=== PATIENT | female | born 1995 | race Caucasian/White ===

== ENCOUNTER 2016-11-30 14:17 | Emergency (ER) | payer OTHER ==
[2016-11-30] MEDS ORDERED: ONDANSETRON PF 4 MG/2 ML VIAL. IV ONE ×2 (14:45→15:15)
[2016-11-30 15:04] LABS: BASO # 0.1 x10^3/uL (0.0-0.2); BASO % 1 % (0-3); EOS # 0.3 x10^3/uL (0.0-0.7); EOS % 4 % (0-3); HEMATOCRIT 36.5 % (36.0-47.0); HEMOGLOBIN 12.3 g/dL (12.0-15.5); LYMPH # 2.9 x10^3/uL (1.0-4.8); LYMPH % 31 % (24-48); MEAN CORPUSCULAR HEMOGLOBIN 29 pg (25-35); MEAN CORPUSCULAR HGB CONC 34 g/dL (31-37); MEAN CORPUSCULAR VOLUME 86 fL (79-100); MONO # 0.5 x10^3/uL (0.0-1.1); MONO % 5 % (0-9); NEUT # 5.5 x10^3uL (1.8-7.7); NEUT % 59 % (31-73); PLATELET COUNT 292 x10^3/uL (140-400); RED BLOOD COUNT 4.23 x10^6/uL (3.50-5.40); RED CELL DISTRIBUTION WIDTH 14.7 % (11.5-14.5); WHITE BLOOD COUNT 9.3 x10^3/uL (4.0-11.0)
[2016-11-30 15:12] LABS: BILIRUBIN,URINE NEG (NEG); CLARITY,URINE CLOUDY; COLOR,URINE YELLOW; GLUCOSE,URINE NEG (NEG); NITRITE,URINE NEG (NEG); UROBILINOGEN,URINE 0.2 mg/dL (0.2 mg/dL)
[2016-11-30 15:13] LABS: BACTERIA,URINE FEW /HPF (0-FEW); SQUAMOUS EPITHELIAL CELL,UR MANY /LPF
[2016-11-30 15:15] LABS: ALBUMIN 3.9 g/dL (3.4-5.0); ALBUMIN/GLOBULIN RATIO 0.9 (1.0-1.7); CALCIUM 8.9 mg/dL (8.5-10.1); CREATININE 0.7 mg/dL (0.6-1.0); GFR 103.7; POTASSIUM 3.8 mmol/L (3.5-5.1); TOTAL BILIRUBIN 0.8 mg/dL (0.2-1.0); TOTAL PROTEIN 8.2 g/dL (6.4-8.2)
[2016-11-30] MEDS ORDERED: LIDO:MAALOX 1:1 20 ML SINGLE DOSE PO ONE (15:15)
--- NOTE | 2016-11-30 15:15 | ED.ADGEN ---
Past History Past Medical History: No Pertinent History Past Surgical History: Alcohol Use: Occasionally Drug Use: None Adult General HPI HPI Patient is a 21-year-old woman, history of , who presents to the emergency department with a complaint of nausea, vomiting, diarrhea and abdominal pain that began yesterday. Patient states that she is experiencing sharp shooting abdominal pains that began in the upper abdomen radiating to the lower abdomen, associated with episodes of diarrhea, nausea, and vomiting, food and fluid. Denies any blood in stool or emesis. Denies any sick contacts or bad food exposure, any fevers or chills, any body aches, any focal weakness, numbness, tingling, chest pain, flank pain, urinary complaints. Patient was seen by her primary care provider yesterday, she states that at the time of her evaluation, her physician had a student in the room, she states that they discussed the possibility that she had inflammation of her "maybe my liver or my pancreas", patient states that she is continued to have sharp pain, although her diarrhea nausea and vomiting are better today, and she is concerned about the possibility of inflammation or other abnormalities with her liver. She continues to have pain she says is about a 5 out of 10, has not taken anything for pain prior to coming to the ED. She states that she was prescribed "with a told it was an antibiotic, for diarrhea". She does not recall the name of the medication. Review of Systems Review of Systems Constitutional: Denies fever or chills [] Eyes: Denies change in visual acuity, redness, or eye pain [] HENT: Denies nasal congestion or sore throat [] Respiratory: Denies cough or shortness of breath [] Cardiovascular: No additional information not addressed in HPI [] GI: Sharp cramping abdominal pain begins in the upper abdomen and radiates down to the lower abdomen, associated with nausea, vomiting, and diarrhea. No blood in emesis or stool. : Denies dysuria or hematuria [] Musculoskeletal: Denies back pain or joint pain [] Integument: Denies rash or skin lesions [] Neurologic: Denies headache, focal weakness or sensory changes [] Endocrine: Denies polyuria or polydipsia [] Current Medications Current Medications Current Medications Medications (Trade) Dose Ordered Sig/Jeaneth Start Time Stop Time Status Last Admin Dose Admin Multi-Ingredient Mouthwash/Gargle (Gi Cocktail) 20 ml 1X ONCE 11/30/16 15:15 11/30/16 15:16 DC 11/30/16 15:25 20 ML Ondansetron HCl (Zofran Odt) 4 mg 1X ONCE 11/30/16 15:30 11/30/16 15:31 DC 11/30/16 15:25 4 MG Ondansetron HCl (Zofran) 4 mg 1X ONCE 11/30/16 15:15 11/30/16 15:28 DC Allergies Allergies Allergies Coded Allergies Type Severity Reaction Last Updated Verified latex Allergy Unknown 11/30/16 Yes Physical Exam Physical Exam Constitutional: Well developed, well nourished, no acute distress, non-toxic appearance. [] HENT: Normocephalic, atraumatic, bilateral external ears normal, oropharynx moist, no oral exudates, nose normal. [] Eyes: PERRLA, EOMI, conjunctiva normal, no discharge. [] Neck: Normal range of motion, no tenderness, supple, no stridor. [] Cardiovascular:Heart rate regular rhythm, no murmur, S1, S2, rubs or gallops. [] Lungs & Thorax: Bilateral breath sounds clear to auscultation, no wheezing, rhonchi, rales. No chest wall crepitus or tenderness. [] Abdomen: Bowel sounds normal, soft, mild tenderness palpation in the epigastric region, periumbilical region, no tenderness to palpation of the right upper quadrant, in the lower abdomen, no rebound, rigidity, no guarding, no masses, no pulsatile masses. [] Skin: Warm, dry, no erythema, no rash. [] Back: No tenderness, no CVA tenderness. [] Extremities: No tenderness, no cyanosis, no clubbing, ROM intact, no edema. Negative Homans sign. [] Neurologic: Alert and oriented X 3, normal motor function, normal sensory function, no focal deficits noted. [] Psychologic: Affect normal, judgement normal, mood normal. [] Current Patient Data Vital Signs Vital Signs Date Time Temp Pulse Resp B/P (MAP) Pulse Ox O2 Delivery O2 Flow Rate FiO2 11/30/16 14:35 98.2 96 16 97 Room Air Lab Results Laboratory Tests Test 11/30/16 14:30 11/30/16 14:49 11/30/16 14:50 Urine Collection Type Unknown Urine Color Yellow Urine Clarity Cloudy Urine pH 5.0 Urine Specific [place] 1.025 Urine Protein Neg (NEG-TRACE) Urine Glucose (UA) Neg mg/dL (NEG) Urine Ketones (Stick) Neg mg/dL (NEG) Urine Blood Large (NEG) Urine Nitrite Neg (NEG) Urine Bilirubin Neg (NEG) Urine Urobilinogen Dipstick 0.2 mg/dL (0.2 mg/dL) Urine Leukocyte Esterase Neg (NEG) Urine RBC 3-5 /HPF (0-2) Urine WBC 1-4 /HPF (0-4) Urine Squamous Epithelial Cells Many /LPF Urine Bacteria Few /HPF (0-FEW) POC Urine HCG, Qualitative hcg negative (Negative) White Blood Count 9.3 x10^3/uL (4.0-11.0) Red Blood Count 4.23 x10^6/uL (3.50-5.40) Hemoglobin 12.3 g/dL (12.0-15.5) Hematocrit 36.5 % (36.0-47.0) Mean Corpuscular Volume 86 fL (79-100) Mean Corpuscular Hemoglobin 29 pg (25-35) Mean Corpuscular Hemoglobin Concent 34 g/dL (31-37) Red Cell Distribution Width 14.7 % (11.5-14.5) H Platelet Count 292 x10^3/uL (140-400) Neutrophils (%) (Auto) 59 % (31-73) Lymphocytes (%) (Auto) 31 % (24-48) Monocytes (%) (Auto) 5 % (0-9) Eosinophils (%) (Auto) 4 % (0-3) H Basophils (%) (Auto) 1 % (0-3) Neutrophils # (Auto) 5.5 x10^3uL (1.8-7.7) Lymphocytes # (Auto) 2.9 x10^3/uL (1.0-4.8) Monocytes # (Auto) 0.5 x10^3/uL (0.0-1.1) Eosinophils # (Auto) 0.3 x10^3/uL (0.0-0.7) Basophils # (Auto) 0.1 x10^3/uL (0.0-0.2) Sodium Level 140 mmol/L (136-145) Potassium Level 3.8 mmol/L (3.5-5.1) Chloride Level 103 mmol/L (98-107) Carbon Dioxide Level 28 mmol/L (21-32) Anion Gap 9 (6-14) Blood Urea Nitrogen 19 mg/dL (7-20) Creatinine 0.7 mg/dL (0.6-1.0) Estimated GFR (Cockcroft-Gault) 103.7 BUN/Creatinine Ratio 27 (6-20) H Glucose Level 105 mg/dL (70-99) H Calcium Level 8.9 mg/dL (8.5-10.1) Total Bilirubin 0.8 mg/dL (0.2-1.0) Aspartate Amino Transferase (AST) 13 U/L (15-37) L Alanine Aminotransferase (ALT) 22 U/L (14-59) Alkaline Phosphatase 65 U/L (46-116) Total Protein 8.2 g/dL (6.4-8.2) Albumin 3.9 g/dL (3.4-5.0) Albumin/Globulin Ratio 0.9 (1.0-1.7) L Lipase 179 U/L (73-393) EKG EKG Not indicated. [] Radiology/Procedures Radiology/Procedures [][place] [address] IMAGING REPORT Signed PATIENT: NATHALIA SPENCER ACCOUNT: [id number] : 1995 LOCATION: ER AGE: 21 SEX: F EXAM STATUS: PRE ER ORD. PHYSICIAN: PASCUAL GILBERT DO REASON: abd pain/n/v PROCEDURE: ACUTE ABDOMEN SERIES Acute abdomen series with chest, 3 views, 11/30/2016: History: Abdominal pain, vomiting and diarrhea The abdominal gas pattern is unremarkable. No free air is seen in the abdomen. There is no evidence of organomegaly. Lower pelvic calcifications are compatible with phleboliths. The heart size is normal. The lungs are clear. There is no evidence of pleural fluid. IMPRESSION: No acute abdominal abnormality is detected. DICTATED AND SIGNED BY: STALIN GRANDA MD DATE: 11/30/16 5623 CC: YAMEL DE LOS SANTOS; PASCUAL GILBERT DO ~ Course & Med Decision Making Course & Med Decision Making Pertinent Labs and Imaging studies reviewed. (See chart for details) During the course or discussion, patient states that she is unclear exactly what her physician was saying, states they did not give her any indication if she actually had an enlarged liver, or other concerning findings examination, she was unclear from the conversation, if any additional follow-up was required. Discussed with patient that due to his symptoms and concerns, we will obtain laboratory studies, and obstruction series the abdomen, as patient does not have any concerning abdominal findings at this time, although she continues to have pain, and some symptoms. Discussed with patient that her symptoms may be consistent with a viral illness. Patient voiced understanding and agreement with this plan, did receive GI cocktail, oral Zofran in the ED. Patient's laboratory studies and imaging not reveal any concerning findings. I did discuss laboratory studies and imaging with patient, she is feeling better, has not had any further emesis in the ED, states she is still expressing some abdominal pain. Discussed the patient that her symptoms could be from a viral illness, recommended use of Zofran, Bentyl, fluids, we also discussed concerning symptoms that would prompt return to the ED for additional evaluation. Importance of good hand hygiene. Patient voiced understanding and agreement with plan and precautions as stated, discharged home in stable condition with prescription for Zofran and Bentyl. Final Impression Final Impression [] Problems: Dragon Disclaimer Dragon Disclaimer This electronic medical record was generated, in whole or in part, using a voice recognition dictation system. Departure: Impression: Primary Impression: Nausea & vomiting Disposition: 01 HOME, SELF-CARE Condition: IMPROVED Scripts Dicyclomine Hcl (BENTYL) 10 Mg Capsule 1 CAP PO PRN TID Y for ABD CRAMPING, #12 CAP Prov: PASCUAL GILBERT DO 11/30/16 Ondansetron Hcl (ZOFRAN) 4 Mg Tablet 4 MG PO PRN Q6-8HRS Y for NAUSEA, #12 Prov: PASCUAL GILBERT DO 11/30/16 PASCUAL GILBERT DO Nov 30, 2016 15:15
--- NOTE | 2016-11-30 15:19 | RAD ---
Acute abdomen series with chest, 3 views, 11/30/2016: History: Abdominal pain, vomiting and diarrhea The abdominal gas pattern is unremarkable. No free air is seen in the abdomen. There is no evidence of organomegaly. Lower pelvic calcifications are compatible with phleboliths. The heart size is normal. The lungs are clear. There is no evidence of pleural fluid. IMPRESSION: No acute abdominal abnormality is detected.
[2016-11-30] MEDS ORDERED: ONDANSETRON ODT 4 MG TAB.RAPDIS ONE (15:24)
[2016-11-30] MEDS ORDERED: ONDANSETRON ODT 4 MG TAB.RAPDIS PO ONE (15:30)
[2016-11-30] MEDS ORDERED: ONDA4TAB7 PO (16:12)
[2016-11-30] MEDS ORDERED: DICY10CA53 PO (16:12)
[2016-11-30 16:15] VITALS: BP 119/71
== END 2016-11-30 16:15 | disposition home or self-care (01) ==
LOC: ER 14:17
DX: R11.2 Nausea with vomiting, unspecified (principal); R19.7 Diarrhea, unspecified; R10.13 Epigastric pain; Z90.89 Acquired absence of other organs; Z91.040 Latex allergy status
CPT/HCPCS: 36415; 74022; 80053; 81001; 81025; 83690; 85025; 99285; Q0162

== ENCOUNTER → 2017-06-17 | Emergency (ER) | payer OTHER ==
[~2017-06-17] VITALS: Ht 154.9 cm; Wt 76.2 kg
[~2017-06-17] MED LIST: 0.9 % SODIUM CHLORIDE 10 ML DISP.SYRIN. IV PRN; DICY10CA53 PO; IOHEXOL 240 MG/ML 50ML VIAL. ONE; IV NORMAL SALINE 1,000ML 1,000 ML IV SCH; KETOROLAC 30 MG/ML VIAL. IV ONE; NAPR-683 PO; ONDA4TAB10 SL; ONDA4TAB7 PO; ONDANSETRON PF 4 MG/2 ML VIAL. IV ONE
[2017-06-17 09:37] LABS: BACTERIA,URINE FEW /HPF (0-FEW); BILIRUBIN,URINE NEG (NEG); CLARITY,URINE HAZY; COLOR,URINE AMBER; GLUCOSE,URINE NEG (NEG); NITRITE,URINE NEG (NEG); SQUAMOUS EPITHELIAL CELL,UR MOD /LPF; UROBILINOGEN,URINE 0.2 mg/dL (0.2 mg/dL); WBC,URINE OCC /HPF (0-4)
[2017-06-17 09:44] LABS: BASO % 0 % (0-3); EOS # 0.2 x10^3/uL (0.0-0.7); EOS % 2 % (0-3); HEMATOCRIT 39.3 % (36.0-47.0); HEMOGLOBIN 13.3 g/dL (12.0-15.5); LYMPH # 1.5 x10^3/uL (1.0-4.8); LYMPH % 17 % (24-48); MEAN CORPUSCULAR HEMOGLOBIN 31 pg (25-35); MEAN CORPUSCULAR HGB CONC 34 g/dL (31-37); MEAN CORPUSCULAR VOLUME 91 fL (79-100); MONO # 0.6 x10^3/uL (0.0-1.1); MONO % 6 % (0-9); NEUT % 75 % (31-73); PLATELET COUNT 298 x10^3/uL (140-400); RED BLOOD COUNT 4.32 x10^6/uL (3.50-5.40); RED CELL DISTRIBUTION WIDTH 13.4 % (11.5-14.5); WHITE BLOOD COUNT 9.4 x10^3/uL (4.0-11.0)
--- NOTE | 2017-06-17 09:50 | PHYS DOC ---
Past History Past Medical History: No Pertinent History Past Surgical History: Smoking: Non-smoker Alcohol Use: Occasionally Drug Use: None Adult General Chief Complaint Chief Complaint: ABDOMINAL PAIN HPI HPI 22-year-old female patient complaining of gradual onset of upper abdominal pain since yesterday after eating eggs as a constant pain with episodes of sharp pain. Patient said the pain radiated to the back and associated with nausea and anorexia. Patient complaining of 2 episodes of diarrhea. Rated his pain 6/10. Patient denies fever and chills, urinary symptoms, , vaginal tearing or discharge, vomiting, history of the same pain. Review of Systems Review of Systems Constitutional: Denies fever or chills [] Eyes: Denies change in visual acuity, redness, or eye pain [] HENT: Denies nasal congestion or sore throat [] Respiratory: Denies cough or shortness of breath [] Cardiovascular: No additional information not addressed in HPI [] GI: Reports abdominal pain, nausea, denies vomiting, bloody stools or diarrhea [ ] : Denies dysuria or hematuria [] Musculoskeletal: Denies back pain or joint pain [] Integument: Denies rash or skin lesions [] Neurologic: Denies headache, focal weakness or sensory changes [] Endocrine: Denies polyuria or polydipsia [] All other systems were reviewed and found to be within normal limits, except as documented in this note. Current Medications Current Medications Current Medications Medications (Trade) Dose Ordered Sig/Jeaneth Start Time Stop Time Status Last Admin Dose Admin Iohexol (Omnipaque 240 Mg/ml) 50 ml STK-MED ONCE 06/17/17 09:38 06/17/17 09:39 DC Ketorolac Tromethamine (Toradol) 30 mg 1X ONCE 06/17/17 10:00 06/17/17 10:01 Ondansetron HCl (Zofran) 4 mg 1X ONCE 06/17/17 09:45 06/17/17 09:46 06/17/17 09:33 4 MG Sodium Chloride (Normal Saline Flush) 10 ml QSHIFT PRN 06/17/17 09:30 Allergies Allergies Allergies Coded Allergies Type Severity Reaction Last Updated Verified latex Allergy Unknown 11/30/16 Yes Physical Exam Physical Exam Constitutional: Well developed, well nourished, mild distress, non-toxic appearance. [] HENT: Normocephalic, atraumatic, bilateral external ears normal, oropharynx moist, no oral exudates, nose normal. [] Eyes: PERRLA, EOMI, conjunctiva normal, no discharge. [] Neck: Normal range of motion, no tenderness, supple, no stridor. [] Cardiovascular:Heart rate regular rhythm, no murmur [] Lungs & Thorax: Bilateral breath sounds clear to auscultation [] Abdomen: Bowel sounds normal, soft, right upper quadrant guarding ,no tenderness , no masses, no pulsatile masses. [] Skin: Warm, dry, no erythema, no rash. [] Back: No tenderness, no CVA tenderness. [] Extremities: No tenderness, no cyanosis, no clubbing, ROM intact, no edema. [] Neurologic: Alert and oriented X 3, normal motor function, normal sensory function, no focal deficits noted. [] Psychologic: Affect normal, judgement normal, mood normal. [] Current Patient Data Lab Results Laboratory Tests Test 06/17/17 09:17 06/17/17 09:22 Urine Collection Type Unknown Urine Color Megan Urine Clarity Hazy Urine pH 5.5 Urine Specific [place] 1.025 Urine Protein 30 mg/dl (NEG-TRACE) Urine Glucose (UA) Neg mg/dL (NEG) Urine Ketones (Stick) 15 mg/dL (NEG) Urine Blood Neg (NEG) Urine Nitrite Neg (NEG) Urine Bilirubin Neg (NEG) Urine Urobilinogen Dipstick 0.2 mg/dL (0.2 mg/dL) Urine Leukocyte Esterase Trace (NEG) Urine RBC 1-2 /HPF (0-2) Urine WBC Occ /HPF (0-4) Urine Squamous Epithelial Cells Mod /LPF Urine Bacteria Few /HPF (0-FEW) Urine Mucus Slight /LPF POC Urine HCG, Qualitative hcg negative (Negative) EKG EKG [] Radiology/Procedures Radiology/Procedures [ [address] [address] IMAGING REPORT Signed PATIENT: NATHALIA SPENCER ACCOUNT: [id number] : 1995 LOCATION: ER AGE: 22 SEX: F EXAM STATUS: REG ER ORD. PHYSICIAN: XAVIER MESA MD REASON: abdominal pain PROCEDURE: ABDOMEN LTD Limited abdomen ultrasound study of the right upper quadrant Clinical indications: Abdominal pain. Findings: The liver is homogeneous and measures 15.9 cm in length. The pancreas is homogeneous without focal enlargement. The gallbladder is normal and no gallstones are seen. The extra hepatic bile duct measures 3.0 mm in caliber which is normal. The length of the right kidney is 10.5 cm. No hydronephrosis or renal mass or perinephric fluid collection is seen on this side. IMPRESSION: Unremarkable right upper quadrant abdomen ultrasound study. DICTATED AND SIGNED BY: JAYDE SCHUMACHER MD DATE: 06/17/17 5761 CC: YAMEL DE LOS SANTOS; XAVIER MESA MD ~ ] Course & Med Decision Making Course & Med Decision Making Pertinent Labs and Imaging studies reviewed. (See chart for details) Evaluation of patient in ER showed 22-year-old female patient with upper abdominal pain and nausea and 2 episodes of diarrhea since yesterday. Patient had unremarkable physical exam except for guarding of upper abdomen. Labs was unremarkable. Patient tolerated oral intake. Patient still complaining of pain but doesn't want to have any more pain medication. Plan to discharge patient home with diagnosis of acute gastroenteritis. discharge: I've spoken with the patient and/or caregivers. I've explained the patient's condition, diagnosis and treatment plan based on information available to me at this time. I've answered the patient's and/or caregivers questions and addressed any concerns. The patient and/or caregivers have a good understanding the patient's diagnosis, condition and treatment plan as can be expected at this point. Vital signs have been stabilized. The patient's condition is stable for discharge from the emergency department. The patient will pursue further outpatient evaluation with her primary care provider or other designated consulting physician as outlined in the discharge instructions. Patient and/or caregivers are agreeable to this plan of care and follow-up instructions have been explained in detail. The patient and/or caregivers have received these instructions in written format and expressed understanding of these discharge instructions. The patient and her caregivers are aware that if any significant change in condition or worsening of symptoms should prompt him to immediately return to this of the closest emergency department. If an emergent department is not readily available I would encourage him to call 911. Elif Disclaimer Elif Disclaimer This electronic medical record was generated, in whole or in part, using a voice recognition dictation system. Departure Departure: Impression: Primary Impression: Viral gastroenteritis Additional Impression: Abdominal pain Disposition: HOME, SELF-CARE (At 1026) Condition: IMPROVED Referrals: YAMEL DE LOS SANTOS (PCP) Patient Instructions: Viral Gastroenteritis Additional Instructions: Drink plenty of liquids Follow-up with your primary care physician in 3-5 days Return to ER if not getting better Do not eat solid food for 24 hour Scripts Naproxen (NAPROSYN) 500 Mg Tablet 1 TAB PO BID, #14 TAB 2 Refills Prov: XAVIER MESA MD 06/17/17 Ondansetron (ZOFRAN ODT) 4 Mg Tab.rapdis 1 TAB SL Q8HRS, #15 TAB Prov: XAVIER MESA MD 06/17/17 Problem Qualifiers XAVIER MESA MD Jun 17, 2017 09:50
--- NOTE | 2017-06-17 09:55 | RAD ---
Limited abdomen ultrasound study of the right upper quadrant Clinical indications: Abdominal pain. Findings: The liver is homogeneous and measures 15.9 cm in length. The pancreas is homogeneous without focal enlargement. The gallbladder is normal and no gallstones are seen. The extra hepatic bile duct measures 3.0 mm in caliber which is normal. The length of the right kidney is 10.5 cm. No hydronephrosis or renal mass or perinephric fluid collection is seen on this side. IMPRESSION: Unremarkable right upper quadrant abdomen ultrasound study.
[2017-06-17 09:56] LABS: ALBUMIN 3.7 g/dL (3.4-5.0); ALBUMIN/GLOBULIN RATIO 0.8 (1.0-1.7); CALCIUM 8.7 mg/dL (8.5-10.1); CREATININE 0.6 mg/dL (0.6-1.0); GFR 122.8; POTASSIUM 4.4 mmol/L (3.5-5.1); TOTAL BILIRUBIN 0.6 mg/dL (0.2-1.0); TOTAL PROTEIN 8.2 g/dL (6.4-8.2)
[2017-06-17 11:09] VITALS: BP 113/52
== END | disposition home or self-care (01) ==
LOC: ER 08:55
DX: A08.4 Viral intestinal infection, unspecified (principal); Z91.040 Latex allergy status
CPT/HCPCS: 36415; 76705; 80053; 81001; 81025; 83690; 85025; 87086; 96361; 96374; 96375; 99285; J1885; J2405; J7030